=== PATIENT | male | born 1985 | race Caucasian/White ===

== ENCOUNTER 2017-04-14 01:01 | Emergency (ER) | payer OTHER ==
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
[2017-04-14 02:39] LABS: BASO # 0.1 K/uL (0.0-0.2); BASO % 0.8 % (0.0-2.0); EOS # 0.3 K/uL (0.0-0.7); EOS % 3.2 % (0.0-4.0); HEMOGLOBIN 14.5 g/dL (12.0-18.0); LYMPH # 2.2 K/uL (1.0-4.3); LYMPH % 25.9 % (20.0-40.0); MEAN CELL VOLUME 86.8 fL (80.0-94.0); MEAN CORPUSCULAR HEMOGLOBIN 29.3 pg (27.0-31.0); MEAN CORPUSCULAR HGB CONC 33.8 g/dL (33.0-37.0); MEAN PLATELET VOLUME 9.2 fL (7.2-11.7); MONO # 0.8 K/uL (0.0-0.8); MONO % 9.7 % (0.0-10.0); NEUT # 5.1 K/uL (1.8-7.0); NEUT % 60.4 % (50.0-75.0); RBC 4.95 Mil/uL (4.40-5.90); WHITE BLOOD COUNT 8.4 K/uL (4.8-10.8)
[2017-04-14 02:41] LABS: URINE BILIRUBIN NEGATIVE (NEGATIVE); URINE CLARITY Clear (Clear); URINE COLOR Colorless (YELLOW); URINE GLUCOSE (UA) NORMAL (Normal); URINE LEUKOCYTE ESTERASE NEG Leu/uL (Negative); URINE NITRATE NEGATIVE (NEGATIVE); URINE PROTEIN NEGATIVE (NEGATIVE); URINE UROBILINOGEN NORMAL mg/dL (0.2-1.0)
--- NOTE | 2017-04-14 02:41 | CT ---
EXAM: CT Head Without Intravenous Contrast CLINICAL HISTORY: 31 years old, male; Pain; Headache; Additional info: R/O bleed TECHNIQUE: Axial computed tomography images of the head/brain without intravenous contrast. This CT exam was performed using one or more of the following dose reduction techniques: automated exposure control, adjustment of the mA and/or kV according to patient size, and/or use of iterative reconstruction technique. COMPARISON: No relevant prior studies available. FINDINGS: Brain: No acute intracranial hemorrhage. No significant white matter disease. No edema. Ventricles: No significant ventriculomegaly. Bones: No acute displaced fracture. Sinuses: Mucoperiosteal thickening within the bilateral ethmoid sinuses. The visualized maxillary, sphenoid and frontal sinuses are unremarkable. Mastoid air cells: Unremarkable as visualized. No mastoid effusion. IMPRESSION: No acute intracranial hemorrhage, or suspicious mass effect. Inflammatory change within the bilateral ethmoid sinuses, as detailed above.
[2017-04-14 02:49] LABS: URINE BLOOD NEGATIVE (NEGATIVE)
[2017-04-14 02:50] LABS: ALBUMIN 4.1 g/dL (3.5-5.0)
[2017-04-14 02:53] LABS: ALB/GLOB RATIO 1.2 (1.0-2.1); AST/SGOT 27 U/L (17-59); GFR AFRICAN-AMERICAN > 60; GFR NON-AFRICAN AMERICAN > 60
[2017-04-14 02:54] LABS: ALT/SGPT 43 U/L (21-72); BLOOD UREA NITROGEN 11 mg/dL (9-20); CALCIUM 9.1 mg/dl (8.6-10.4)
[2017-04-14 03:59] LABS: T3 1.77 nmol/L (1.49-2.60)
[2017-04-14 05:24] VITALS: BP 128/84; PULSE 79; RESP 18; TEMP 98.2; O2SAT 100
== END 2017-04-14 05:24 | disposition home or self-care (01) ==
LOC: C.ER 01:01
DX: Z00.00 Encounter for general adult medical examination without abnormal findings (principal)

== ENCOUNTER 2017-04-14 11:57 | Emergency (ER) | payer OTHER ==
[2017-04-14 12:04] VITALS: BP 137/85; PULSE 76; RESP 18; TEMP 98.1; O2SAT 100
--- NOTE | 2017-04-14 13:56 | C.PDOC ---
History Of Present Illness 31 yr old male presents to the ER with complaints of generalized weakness for the past 3 days. Patient was seen in ER approximately 10hrs ago for the same complaints and was discharged. Patient states he was seen by his PMD few days ago and was referred to neurology. Patient denies fever, chest pain, SOB, SI, HI or numbness. Time Seen by Provider: 04/14/17 12:08 Chief Complaint (Nursing): Upper Extremity Problem/Injury History Per: Patient History/Exam Limitations: no limitations Onset/Duration Of Symptoms: Days (3 days) Past Medical History Reviewed: Historical Data, Nursing Documentation, Vital Signs Vital Signs: Last Vital Signs Temp 98.1 F 04/14/17 12:02 Pulse 76 04/14/17 12:02 Resp 18 04/14/17 12:02 BP 137/85 04/14/17 12:02 Pulse Ox 100 04/14/17 13:57 Family History: States: No Known Family Hx - Social History Hx Alcohol Use: No Hx Substance Use: No - Immunization History Hx Tetanus Toxoid Vaccination: No Hx Influenza Vaccination: No Hx Pneumococcal Vaccination: No Review Of Systems Except As Marked, All Systems Reviewed And Found Negative. Constitutional: Positive for: Weakness (Generalized weakness). Negative for: Fever Cardiovascular: Negative for: Chest Pain Respiratory: Negative for: Shortness of Breath Neurological: Negative for: Numbness Physical Exam - Physical Exam Appears: Non-toxic, No Acute Distress Skin: Warm, Dry, No Rash Head: Atraumatic, Normacephalic Eye(s): bilateral: Normal Inspection, PERRL, EOMI Oral Mucosa: Moist Chest: Symmetrical, No Tenderness Cardiovascular: Rhythm Regular, No Murmur Respiratory: Normal Breath Sounds, No Rales, No Rhonchi, No Stridor, No Wheezing Extremity: Normal ROM, No Swelling Neurological/Psych: Oriented x3, Normal Speech, Normal Cognition, Normal Motor, Normal Sensation ED Course And Treatment O2 Sat by Pulse Oximetry: 100 Disposition - Disposition Referrals: Angelina Rosas, [Non-Staff] - Disposition: HOME/ ROUTINE Disposition Time: 12:30 Condition: GOOD Additional Instructions: Thank you for letting us take care of you today. The emergency medical care you received today was directed at your acute symptoms. If you were prescribed any medication, please fill it and take as directed. It may take several days for your symptoms to resolve. Return to the Emergency Department if your symptoms worsen, do not improve, or if you have any other problems. Please contact your doctor or call one of the physicians/clinics you have been referred to that are listed on the Patient Visit Information form that is included in your discharge packet. Bring any paperwork you were given at discharge with you along with any medications you are taking to your follow up visit. Our treatment cannot replace ongoing medical care by a primary care provider (PCP) outside of the emergency department. Thank you for allowing the [facility] team to be part of your care today. The tests that were done last night were negative for any pathology. You must follow up with your primary doctor in 2-3 days, who may refer you to a neurologist. Instructions: Weakness (ED) - Clinical Impression Clinical Impression: Weakness - Scribe Statement The provider has reviewed the documentation as recorded by the Shaniaibrichard Aggarwal Provider Attestation: All medical record entries made by the Shaniaibrichard were at my direction and personally dictated by me. I have reviewed the chart and agree that the record accurately reflects my personal performance of the history, physical exam, medical decision making, and the department course for this patient. I have also personally directed, reviewed, and agree with the discharge instructions and disposition.
== END 2017-04-14 12:57 | disposition home or self-care (01) ==
LOC: C.ER 11:57
DX: R53.1 Weakness (principal)

== ENCOUNTER 2017-04-16 20:46 | Emergency (ER) | payer OTHER ==
[2017-04-16 20:56] VITALS: TEMP 98.5
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
[2017-04-16 22:38] LABS: URINE BILIRUBIN NEGATIVE (NEGATIVE); URINE BLOOD NEGATIVE (NEGATIVE); URINE CLARITY Clear (Clear); URINE COLOR Colorless (YELLOW); URINE GLUCOSE (UA) NORMAL (Normal); URINE LEUKOCYTE ESTERASE NEG Leu/uL (Negative); URINE NITRATE NEGATIVE (NEGATIVE); URINE PROTEIN NEGATIVE (NEGATIVE); URINE UROBILINOGEN NORMAL mg/dL (0.2-1.0)
[2017-04-17 03:10] VITALS: BP 120/79; PULSE 76; RESP 16
[2017-04-24 23:05] VITALS: O2SAT 99
== END 2017-04-17 03:05 | disposition home or self-care (01) ==
LOC: C.ER 20:46
DX: F41.1 Generalized anxiety disorder (principal)

== ENCOUNTER 2017-04-19 09:20 | Emergency (ER) | payer OTHER ==
[2017-04-19 09:23] VITALS: BMI 24.7
[2017-04-19 09:26] VITALS: O2SAT 99
--- NOTE | 2017-04-19 11:43 | C.PDOC ---
History Of Present Illness 31-year-old male, presents to the emergency department with complaints of decreased vision and generalized weakness x2 days. Patient notes that he has decreased sensation to bilateral hands and feet. States he was evaluated by Dr Melendez in office two days ago and also had an MRI. Denies fevers, shortness of breath, chest pain, nausea/vomiting, head trauma, headache, abdominal pain or any other associated symptoms. Patient states his blood sugar was 114, and he is concerned because it has never been that high. notes he is being treated for [place]. Time Seen by Provider: 04/19/17 09:53 Chief Complaint (Nursing): Weakness/Neurological Deficit History Per: Patient History/Exam Limitations: no limitations Onset/Duration Of Symptoms: Days Current Symptoms Are (Timing): Still Present Past Medical History Reviewed: Historical Data, Nursing Documentation, Vital Signs Vital Signs: Last Vital Signs Temp 97.3 F L 04/19/17 12:15 Pulse 65 04/19/17 12:15 Resp 17 04/19/17 12:15 BP 117/71 04/19/17 12:15 Pulse Ox 99 04/19/17 13:46 Family History: States: No Known Family Hx - Social History Hx Alcohol Use: No Hx Substance Use: No - Immunization History Hx Tetanus Toxoid Vaccination: No Hx Influenza Vaccination: No Hx Pneumococcal Vaccination: No Review Of Systems Except As Marked, All Systems Reviewed And Found Negative. Eyes: Positive for: Vision Change (decreased) Cardiovascular: Negative for: Chest Pain, Palpitations Respiratory: Negative for: Shortness of Breath Gastrointestinal: Negative for: Nausea, Vomiting Musculoskeletal: Negative for: Neck Pain, Back Pain Neurological: Positive for: Weakness. Negative for: Numbness, Altered Mental Status, Headache, Dizziness Physical Exam - Physical Exam Appears: Non-toxic, No Acute Distress Skin: Warm, Dry, No Rash Head: Atraumatic, Normacephalic Eye(s): bilateral: Normal Inspection, PERRL, EOMI Ear(s): Bilateral: Normal Nose: Normal Oral Mucosa: Moist Lips: Normal Appearing Throat: Normal, No Erythema, No Exudate Neck: Normal ROM, Supple Chest: Symmetrical Cardiovascular: Rhythm Regular, No Murmur Respiratory: Normal Breath Sounds, No Accessory Muscle Use Gastrointestinal/Abdominal: Soft, No Tenderness Extremity: Normal ROM Extremity: Bilateral: Atraumatic, Normal Color And Temperature, Normal ROM Pulses: Left Radial: Normal, Right Radial: Normal, Left Dorsalis Pedis: Normal, Right Dorsalis Pedis: Normal Neurological/Psych: Oriented x3, Normal Speech, Normal Cognition, Normal Cranial Nerves, Normal Motor (Strength 5/5), Normal Sensation (Distal sensation is decreased to b/l upper and lower extremities.), Other (No focal deficit) Gait: Steady ED Course And Treatment O2 Sat by Pulse Oximetry: 99 (on RA) Pulse Ox Interpretation: Normal Progress Note: Prior Visits. Notes and records from previous visits were reviewed. Patient had CT scan done that did not reveal any acute findings. Plan: blood work ordered and reviewed. Patient had visual acuity: 20/25 right and 20/20 left eye. Pt refused bloodwork. Previous visit evalauted. Case was discussed with Dr Joie Melendez, states to discharge patient for outpatient f/u in office. Discussed with pt that immediate admission is not needed but strict follow up with PMD /neurology tomorrow is indicated. Pt also notes he has outpt psych follow up. Case discussed with Dr rome, who saw and evaluated pt and agreed upon plan and discahrge. Disposition - Disposition Referrals: Sushant Melendez MD [Staff Provider] - Disposition: HOME/ ROUTINE Disposition Time: 11:42 Condition: STABLE Additional Instructions: Follow up with your primary medical doctor or clinic in 2-5 days for further evaluation. Return to the emergency department at any time if symptoms persist or worsen. 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 - Scribe Statement The provider has reviewed the documentation as recorded by the Scribe (Marti Zambrano) All medical record entries made by the Scribe were at my direction and personally dictated by me. I have reviewed the chart and agree that the record accurately reflects my personal performance of the history, physical exam, medical decision making, and the department course for this patient. I have also personally directed, reviewed, and agree with the discharge instructions and disposition.
[2017-04-19 12:16] VITALS: BP 117/71; PULSE 65; RESP 17; TEMP 97.3
== END 2017-04-19 12:45 | disposition home or self-care (01) ==
LOC: C.ER 09:20
DX: M62.81 Muscle weakness (generalized) (principal)

== ENCOUNTER 2017-04-20 20:06 | Emergency (ER) | payer OTHER ==
[2017-04-20 20:06] VITALS: BMI 24.7
[2017-04-20 20:14] VITALS: BP 113/72; PULSE 76; RESP 16; TEMP 98.6; O2SAT 97
--- NOTE | 2017-04-20 20:41 | C.PDOC ---
History Of Present Illness 31 year old male who presents to the ER with a complaint of not feeling well and increased weight loss over the past month. Patient reports he has had diarrhea for a few weeks and black/blue patches on his skin without having any injury. Denies abdominal pain, dysuria, or cough. Chief Complaint (Nursing): High Blood Sugar History Per: Patient History/Exam Limitations: no limitations Onset/Duration Of Symptoms: Days Current Symptoms Are (Timing): Still Present Associated Infectious Symptoms: Diarrhea. denies: Cough, Dysuria, Other ( Abdominal pain) Recent travel outside of the [place]: No Past Medical History Reviewed: Historical Data, Nursing Documentation, Vital Signs Vital Signs: Last Vital Signs Temp 98.6 F 04/20/17 20:10 Pulse 76 04/20/17 20:10 Resp 16 04/20/17 20:10 BP 113/72 04/20/17 20:10 Pulse Ox 97 04/20/17 21:07 Surgical History: No Surg Hx Family History: States: Unknown Family Hx - Social History Hx Alcohol Use: No Hx Substance Use: No - Immunization History Hx Tetanus Toxoid Vaccination: No Hx Influenza Vaccination: No Hx Pneumococcal Vaccination: No Review Of Systems Constitutional: Positive for: Weight loss. Negative for: Fever, Chills Gastrointestinal: Positive for: Diarrhea. Negative for: Nausea, Vomiting, Abdominal Pain Physical Exam - Physical Exam Appears: Non-toxic, No Acute Distress, Other (Awake, Alert) Skin: Normal Color, Warm, Dry Head: Atraumatic, Normacephalic Oral Mucosa: Moist Chest: Symmetrical, No Tenderness Cardiovascular: Rhythm Regular, No Murmur Respiratory: Normal Breath Sounds, No Rales, No Rhonchi, No Wheezing Gastrointestinal/Abdominal: Soft, No Tenderness Extremity: Normal ROM, No Tenderness, Other (Small ecchymotic patches to the arms) Neurological/Psych: Oriented x3, Normal Speech, Normal Cognition, Other (No focal deficits) ED Course And Treatment O2 Sat by Pulse Oximetry: 97 (Room air) Pulse Ox Interpretation: Normal - Radiology CXR: Interpreted by Me, Viewed By Me CXR Interpretation: Yes: No Acute Disease, Other (normal chest film). No: Infiltrates Progress Note: Blood work, CXR, and urinalysis ordered. Reevaluation Time: 21:06 (Patient subsequently refused further blood work.) Disposition Counseled Patient/Family Regarding: Diagnosis - Disposition Referrals: [facility] [Outside] Sushant Melendez MD [Staff Provider] - Disposition: HOME/ ROUTINE Disposition Time: 21:09 Condition: STABLE Instructions: Peripheral Neuropathy (ED), Anxiety (ED), Generalized Anxiety Disorder (ED) - POA Present On Arrival: None - Clinical Impression Clinical Impression: Generalized anxiety disorder, Neuropathy - Scribe Statement The provider has reviewed the documentation as recorded by the Scribrichard Stafford All medical record entries made by the Shaniaibrichard were at my direction and personally dictated by me. I have reviewed the chart and agree that the record accurately reflects my personal performance of the history, physical exam, medical decision making, and the department course for this patient. I have also personally directed, reviewed, and agree with the discharge instructions and disposition.
--- NOTE | 2017-04-21 07:37 | RAD ---
HISTORY: losing wts x 1 month COMPARISON: None available TECHNIQUE: Chest PA and lateral FINDINGS: LUNGS: No focal consolidation. Please note that chest x-ray has limited sensitivity for the detection of pulmonary masses. PLEURA: No significant pleural effusion identified. No definite pneumothorax . CARDIOVASCULAR: The cardiomediastinal silhouette appears within normal limits of size. OSSEOUS STRUCTURES: No acute osseous abnormality identified. VISUALIZED UPPER ABDOMEN: Unremarkable. OTHER FINDINGS: None. IMPRESSION: No focal consolidation, significant pleural effusion, or definite pneumothorax identified.
== END 2017-04-20 21:12 | disposition home or self-care (01) ==
LOC: C.ER 20:06
DX: F41.1 Generalized anxiety disorder (principal); G62.9 Polyneuropathy, unspecified

== ENCOUNTER 2017-04-24 19:23 | Emergency (ER) | payer OTHER ==
[2017-04-24 19:23] VITALS: BMI 24.7
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
[2017-04-24 20:28] VITALS: BP 134/87; PULSE 75; RESP 18; TEMP 97.8
[2017-04-25 02:48] VITALS: O2SAT 99
== END 2017-04-24 20:35 | disposition home or self-care (01) ==
LOC: C.ER 19:23
DX: Z00.00 Encounter for general adult medical examination without abnormal findings (principal)

== ENCOUNTER 2017-05-12 15:35 | Emergency (ER) | payer OTHER | END 2017-05-12 17:08 | disposition home or self-care (01) | LOC: C.ER 15:35 | DX: Z04.8 Encounter for examination and observation for other specified reasons (principal) ==